=== PATIENT | male | born 2000 | race African-American/Black ===

== ENCOUNTER 2019-07-07 14:00 | Outpatient (RCR) | payer OTHER ==
[2019-06-09 14:37] VITALS: BP 119/73; PULSE 56; TEMP 98.4
[2019-06-23 14:50] VITALS: BP 125/73; PULSE 69; TEMP 98.4
[~2019-07-07] VITALS: Ht 175.3 cm; Wt 85.2 kg
[~2019-07-07 14:00] MED LIST: BREO IH; PROAIR HFA0.09 MG/AC IH; RT SPIRIVA18 MCG IH; SINGULAIR 110 MG/TAB PO
--- NOTE | 2019-07-22 15:23 | NUR ---
Stop xolair per office note from Dr. Magallanes. Account closed.
== END 2019-07-22 15:25 | disposition home or self-care (01) ==
LOC: EUO 14:00
DX: J45.40 Moderate persistent asthma, uncomplicated (principal); Z79.899 Other long term (current) drug therapy
CPT/HCPCS: J2357